=== PATIENT | male | born 1990 | race Caucasian/White ===

== ENCOUNTER 2020-06-27 22:13 | Emergency (ER) | payer SELFPAY ==
[2020-06-27 22:15] VITALS: BP 129/95; PULSE 94; RESP 16; TEMP 36.9; O2SAT 98; BMI 23.6
--- NOTE | 2020-06-27 22:30 | US_ITS ---
WS: [id number] Complete ABDOMINAL ULTRASOUND HISTORY: Abdominal Pain COMPARISON: None available. Liver: 14.2 cm in length. Liver is normal size and echogenicity. No mass or bile duct dilatation. Gallbladder: Normally distended gallbladder. Stones and sludge are present without gallbladder wall t hickening or pericholecystic fluid. Gallbladder wall thickness: 0.3 cm. Pancreas: Normal size and echogenicity. CBD: 0.3 cm. Right kidney: 10.0 cm x 5.1 cm x 4.9 cm. No mass, cortical thickening or hydronephrosis. Left kidney: 10.8 cm x 4.5 cm x 4.1 cm. No mass, cortical thickening or hydronephrosis. Spleen: Normal size and echogenicity. Abdominal aorta and IVC are within normal limits. No ascites. US/US abdomen complete* [id number] IMPRESSION: 1. Cholelithiasis and gallbladder sludge. Otherwise negative gallbladder. 2. No bile duct dilatation.
--- NOTE | 2020-06-27 22:43 | ED_ITS ---
HPI - Abdominal Pain General: Chief Complaint: Abdominal Pain Stated Complaint: ABD PAIN Time Seen by Provider: 06/27/20 22:22 Source: patient Mode of arrival: ambulatory Limitations: no limitations History of Present Illness: HPI narrative: Zay is a 29-year-old male who comes in complaining of epigastric pain. His symptoms began earlier tonight and lasted approximately 45 minutes. He states they started abruptly and ended abruptly. He describes the pain as a dull ache in the epigastric area. He was nauseated but did not vomit. He denies any fevers or chills. He denies any lower abdominal pain. He has had no diarrhea but he has chronic constipation. He denies any urinary symptoms such as urinary frequency/urgency or dysuria. He denies any hematuria or flank pain. Patient states that he had a similar episode that lasted 30 seconds the night before but never sought medical attention. The patient states his pain resolved spontaneously on his way to the hospital and currently he feels fine and has no pain. He is unaware of anything that made his symptoms better or worse other than laying flat helps improve his pain slightly. Associated Symptoms: Reports nausea; Denies chills, coffee ground emesis, constipation, GI cramping, diarrhea, dysuria, fever(s), heartburn, hematochezia, hematuria, hematemesis, melena, syncope and vomiting Review of Systems Const: Denies: fever(s), chills, body aches, fatigue, malaise or diaphoresis Eyes: Denies: change in vision, blurry vision, blind spots, photophobia, eye discharge or eye redness ENMT: Denies: throat pain, odynophagia, hoarseness, swelling of lips/tongue, oral sores, ear or mastoid pain, ear discharge, change in hearing or nasal discharge Card: Denies: chest pain, palpitations, irregular heart rhythm, edema, lightheadedness, syncope, pre-syncope, dyspnea on exertion or orthopnea Resp: Denies: dyspnea, productive cough, non-productive cough, wheezing, hemoptysis or chest congestion GI: Reports: abdominal pain and nausea; Denies: vomiting, hematemesis, coffee ground emesis, heartburn, diarrhea, constipation, GI cramping, hematochezia or melena : Denies: flank pain, dysuria, urinary frequency, urinary urgency or hematuria Musc: Denies: neck pain, back pain, extremity pain, extremity swelling, joint pain, joint swelling, joint redness, joint warmth or joint stiffness Skin/Breast: Denies: rash, pruritus, erythema, skin tenderness or jaundice Neuro: Denies: headache(s), numbness in extremities, weakness in extremities, sensory changes, lack of coordination, difficulty walking, dizziness, vertigo, confusion, Slurred speech present or seizure-like activity Jonh/Lymph: Denies: easy bruising, easy bleeding, petechiae, purpura or enlarged lymph nodes All/Imm: Denies: urticaria, throat swelling, tongue swelling, facial swelling or acute wheezing PFSH ED PFSH: Medical History (Updated 06/28/20 @ 00:17 by Narda Dunn) No pertinent past medical history Surgical History (Updated 06/27/20 @ 22:45 by Narda Dunn) H/O knee surgery History of hip surgery History of mandibular surgery Physical Exam Const: COMMON NORMALS: no acute distress, patient oriented x3, no limitations, healthy appearing and well nourished GENERAL APPEARANCE: cooperative, well kempt and well developed HENMT: COMMON NORMALS: normocephalic, atraumatic, external ears normal, EAC's normal and Normal external nose present HEAD & SCALP: normal to inspection, normocephalic and atraumatic FACE & SINUS: normal facial exam and face symmetric NOSE: Normal external nose present and Normal nares present EXTERNAL EAR: Yes external ears normal EXTERNAL AUDITORY CANAL: EAC's normal MOUTH: Normal oral and palatal mucosa present, lip normal and tongue normal Eye: COMMON NORMALS: Equal, round and reactive pupils present and conjunctivae normal GENERAL EYE: appearance normal, both eyes and all related structures ALIGNMENT: Yes alignment normal PERIORBITAL: periorbital findings normal EYELID: eyelids normal CONJUNCTIVA: Yes conjunctivae normal SCLERA: sclerae normal PUPIL: Yes Equal, round and reactive pupils present Neck/C-Spine: COMMON NORMALS: full ROM, no lymphadenopathy, supple, no meningeal signs and no JVD GENERAL: Yes normal visual inspection and Yes trachea midline Chest: COMMONS NORMALS: normal inspection of the chest and normal palpation of entire chest wall Resp: COMMON NORMALS: normal respiratory effort, No retractions and No use of accessory muscles EFFORT & INSPECTION: Yes able to speak in complete sentences and Yes symmetric chest movement AUSCULTATION: no crackles, no rales, no rhonchi and no wheezes Cardio: COMMON NORMALS: no JVD, regular rate, regular rhythm, S1 normal heart sound present and S2 normal heart sound present RATE: regular rate RHYTHM: regular rhythm HEART SOUNDS: S1 normal heart sound present, S2 normal heart sound present, no click, no gallops, no murmurs, no rubs and abnormal split S2 GI: COMMON NORMALS: Soft to palpation and No hepatosplenomegaly present PALPATION: Yes Soft to palpation, No Tenderness to palpation present (GI), No Guarding due to palpation present (GI), No Rigid due to palpation, Yes No hepatosplenomegaly present, No Hernia present, No Palpable mass present and No Pulsatile mass present : COMMON NORMALS: Yes no CVA tenderness BLADDER/KIDNEY EXAM: Yes no CVA tenderness Back/Pelvis: COMMON NORMALS: no CVA tenderness, thoracic and lumbar spine normal to inspection, no thoracic nor lumbar tenderness and thoraco-lumbar ROM normal Extremity: COMMON NORMALS: normal to inspection, full ROM, capillary refill normal, no joint enlargement, no clubbing, cyanosis or edema and no calf tenderness Neuro: COMMON NORMALS: patient oriented x3, CN's II-XII intact bilaterally, moves all extremities, no focal motor deficits and no sensory deficits noted MENINGEAL SIGNS: Yes no meningeal signs SPEECH: speech normal Psych: COMMON NORMALS: mental status grossly normal, Normal thought process present, cooperative, normal affect, speech normal and activity/motor behavior normal APPEARANCE: Yes well kempt SPEECH: Yes normal speech THOUGHT PROCESS: Normal thought process present Skin: COMMON NORMALS: no rashes or lesions noted, turgor normal, no jaundice, no petechiae and no mottling GENERAL SKIN EXAM: no rashes or lesions noted and turgor normal Procedures EJ/Peripheral Line Arm R: Time Out Performed: Yes Skin Cleansed in Sterile Fashion: Yes Size (gauge): 20 IV Secured and Dressing Applied: Yes Patient Tolerated Procedure: well Additional Comments: Ultrasound utilized throughout procedure. Course Vital Signs: Vital signs: Vital Signs Temperature 98.4 F 06/27/20 22:15 Pulse Rate 94 06/27/20 22:53 Respiratory Rate 18 06/27/20 22:53 Blood Pressure 125/91 06/27/20 22:53 Pulse Oximetry 98 06/27/20 22:53 MDM - Abdominal Pain MDM Narrative: Medical decision making narrative: José is a nice 29-year-old male who comes in complaining of epigastric and right upper quadrant pain. He has had 2 episodes and this episode resolved before he arrived here in the ER. Ultrasound of his gallbladder shows sludge but no wall thickening and no gallstones., Bile duct is normal. Liver enzymes, lipase and all of his labs are unremarkable. The patient wants to go home. He does understand about a dyskinetic gallbladder and will follow-up with Dr. Roman as I have instructed. He agrees to return should his symptoms change or worsen but this time he is feeling better and ready to go home. I see no sign of acute coronary syndrome, appendicitis, bowel obstruction or otherwise. Patient states he is a little constipated and request something for that one time before he goes. I will give him 1 dose of lactulose. Lab Data: Attestation: I reviewed the patient's lab results. Labs: Lab Results 06/27/20 06/27/20 06/27/20 Range/Units 23:27 23:27 23:27 WBC 7.3 (4.0-10.0) 10^3/ uL RBC 4.06 L (4.1-5.3) 10^6/u L Hgb 12.6 (11.7-16.6) g/dL Hct 37.5 L (42.0-52.0) % MCV 92.4 (80-94) fL MCH 31.0 (28.0-34.0) pg MCHC 33.6 (30.0-36.0) g/dL RDW 13.2 (12.1-15.1) % Plt Count 193 (130-400) 10^3/c mm MPV 9.5 (7.4-10.4) fL Neut % (Auto) 83.7 % Lymph % (Auto) 8.1 % [place] % (Auto) 7.0 % Eos % (Auto) 0.4 % Baso % (Auto) 0.3 % Neut # (Auto) 6.09 (1.8-7.7) 10^3/u L Lymph # (Auto) 0.6 L (0.8-4.8) 10^3/u L [place] # (Auto) 0.5 (0.2-0.9) 10^3/u L Eos # (Auto) 0.0 (0.0-0.8) 10^3/u L Baso # (Auto) 0.0 (0.0-0.1) 10^3/u L Nucleated RBC % (a uto) 0 % Nucleated RBCs # 0.0 /100WBC Sodium 136 (136-145) mmol/L Potassium 3.9 (3.5-5.1) mmol/L Chloride 95 L (98-107) mmol/L Carbon Dioxide 31 H (22-29) mmol/L Anion Gap 13.9 (5-19) BUN 9 (6-20) mg/dL Creatinine 0.8 (0.7-1.2) mg/dL GFR Calculation 112.8 (90-130) mL/min Glucose 112 (65-115) mg/dL Calculated Osmolal ity 279 L (285-295) mOsm/k g Calcium 9.6 (8.5-10.5) mg/dL Magnesium 1.8 (1.7-2.3) mg/dL Total Bilirubin 0.6 (0.15-1.2) mg/dL AST 46 H (0-40) U/L ALT 56 H (0-41) U/L Alkaline Phosphata se 323 H (40-130) IU/L Total Protein 8.4 (6.6-8.7) g/dL Albumin 4.3 (3.5-5.2) g/dL Globulin 4.1 (1.3-4.6) g/dL Lipase 24 (13-60) U/L H. pylori IgG Anti body Negative (Negative) Imaging Data ^: US: My impression: Right upper quadrant ultrasound, tech interpretation -gallbladder with sludge present. No gallstones seen. No wall thickening, no pericholecystic fluid. Common bile duct normal. Discharge Plan Discharge Patient Disposition: Home Clinical Impression: Abdominal pain Qualifiers: Abdominal location: right upper quadrant Qualified Code(s): R10.11 - Right upper quadrant pain Condition: Stable Prescriptions: New Protonix 40 mg tablet,delayed release (DR/EC) 40 mg PO DAILY Qty: 30 RF: 0 Zofran 4 mg tablet 4 mg PO Q6H PRN (Reason: nausea and vomiting) Qty: 20 RF: 0 Discharge Orders: Discharge Order (Routine); Ordered 06/28/20 Ordered By: Narda Dunn Referrals: Leon An DO [Primary Care Provider] - 1-3 days Binh Roman MD [Physician] - 1-3 days Patient Instructions: Abdominal Pain (ED) Activity Restrictions/Additional Instructions: Please return to the ER immediately for any of the signs or symptoms listed on your discharge instruction sheets, worsening/changing of your symptoms, you are not getting better as quickly as expected, or for ANY other cause or concerns. If your pain returns or worsens in any way please return to the ER immediately for recheck. Be certain to follow-up with Dr. Roman for further evaluation and care of your gallbladder. Coding Level of Care Code ED Insulating Machine Operator for Chg Fwd Exam Comprehensive
[2020-06-27 22:53] VITALS: BP 125/91; PULSE 94; RESP 18; O2SAT 98
[2020-06-27 23:33] LABS: Basophils % 0.3 %; Eosinophils % 0.4 %; Hematocrit 37.5 % (42.0-52.0); Hemoglobin 12.6 g/dL (11.7-16.6); Lymphocytes # 0.6 10^3/uL (0.8-4.8); Lymphocytes % 8.1 %; Mean Corpuscular HGB Conc 33.6 g/dL (30.0-36.0); Mean Corpuscular Volume 92.4 fL (80-94); Mean Platelet Volume 9.5 fL (7.4-10.4); Monocytes # 0.5 10^3/uL (0.2-0.9); Neutrophils # 6.09 10^3/uL (1.8-7.7); Neutrophils % 83.7 %; Nucleated Red Blood Cells % 0 %; Platelet Count 193 10^3/cmm (130-400); Red Blood Count 4.06 10^6/uL (4.1-5.3); Red Cell Distribution Width 13.2 % (12.1-15.1); White Blood Count 7.3 10^3/uL (4.0-10.0)
[2020-06-27 23:52] LABS: H. Pylori IgG Antibody Negative (Negative)
[2020-06-27 23:56] LABS: Alanine Aminotransferase 56 U/L (0-41); Albumin Level 4.3 g/dL (3.5-5.2); Alkaline Phosphatase 323 IU/L (40-130); Anion Gap 13.9 (5-19); Aspartate Amino Transferase 46 U/L (0-40); Blood Urea Nitrogen 9 mg/dL (6-20); Calcium 9.6 mg/dL (8.5-10.5); Carbon Dioxide 31 mmol/L (22-29); Chloride 95 mmol/L (98-107); Globulin 4.1 g/dL (1.3-4.6); Glomerular Filtration Rate 112.8 mL/min (90-130); Glucose 112 mg/dL (65-115); Lipase 24 U/L (13-60); Magnesium 1.8 mg/dL (1.7-2.3); Osmolality Calculated 279 mOsm/kg (285-295); Potassium 3.9 mmol/L (3.5-5.1); Sodium 136 mmol/L (136-145); Total Bilirubin 0.6 mg/dL (0.15-1.2); Total Protein 8.4 g/dL (6.6-8.7)
[2020-06-28] MEDS: sodium chloride 0.9% 1,000 ML 999 ML IV (00:13)
[2020-06-28] MEDS: sodium chloride 0.9% 1,000 ML 100 ML IV (00:13)
[2020-06-28 00:33] LABS: Urine Appearance Clear (CLEAR); Urine Color Yellow (Yellow); pH Urine 8 (5-7)
[2020-06-28 00:34] LABS: Amorphous Sediment Urine 1+; Bacteria Urine TRACE; Bilirubin Urine Neg (NEGATIVE); Blood Urine Neg (Negative); Glucose Urine UA Norm (Normal); Ketones Urine Negative (Negative); Leukocyte Esterase Urine Negative (Negative); Nitrate Urine Negative (Negative); Protein Urine Neg (Negative); Sulfosalicylic Acid Urine Negative (Negative); Urobilinogen Urine Norm (Negative)
[2020-06-28] MEDS: lactulose oral liq 20 gm/30 mL UDC 30 GM PO (00:45)
== END 2020-06-28 00:49 | disposition home or self-care (01) ==
PROVIDERS: Emergency Provider Emergency Medicine; PCP Family Medicine
DX: R10.11 Right upper quadrant pain (principal)
CPT/HCPCS: 12345; 36000; 36573; 76700; 80053; 81001; 83690; 83735; 85025; 86677; 96360; 96361; 99282; 99283; J7030

== ENCOUNTER 2020-07-25 16:52 | Emergency (ER) | payer SELFPAY ==
[2020-07-25] VITALS (7 sets, daily range): BP systolic 124–131; BP diastolic 80–89; PULSE 76–89; RESP 16–21; TEMP 36.7; O2SAT 94–97; BMI 22.9
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
[2020-07-25 18:25] LABS: Basophils % 0.3 %; Eosinophils # 0.1 10^3/uL (0.0-0.8); Eosinophils % 0.9 %; Hematocrit 39.3 % (42.0-52.0); Hemoglobin 13.3 g/dL (11.7-16.6); Lymphocytes # 0.8 10^3/uL (0.8-4.8); Lymphocytes % 11.9 %; Mean Corpuscular HGB Conc 33.8 g/dL (30.0-36.0); Mean Corpuscular Hemoglobin 30.9 pg (28.0-34.0); Mean Corpuscular Volume 91.4 fL (80-94); Mean Platelet Volume 9.1 fL (7.4-10.4); Monocytes # 0.4 10^3/uL (0.2-0.9); Monocytes % 6.4 %; Neutrophils # 5.26 10^3/uL (1.8-7.7); Neutrophils % 80.2 %; Nucleated Red Blood Cells % 0 %; Platelet Count 287 10^3/cmm (130-400); Red Cell Distribution Width 12.4 % (12.1-15.1); White Blood Count 6.6 10^3/uL (4.0-10.0)
[2020-07-25] MEDS: HYDROmorphone 1 mg/mL INJ 1 mL IVP (18:30)
[2020-07-25 18:35] LABS: Add Urine Microscopic? NO
[2020-07-25 18:40] LABS: Bilirubin Urine Neg (NEGATIVE); Blood Urine Neg (Negative); Glucose Urine UA Norm (Normal); Ketones Urine Negative (Negative); Leukocyte Esterase Urine Negative (Negative); Nitrate Urine Negative (Negative); Protein Urine Neg (Negative); Specific Gravity, Urine 1.015 (1.005-1.030); Urine Appearance Clear (CLEAR); Urine Color Yellow (Yellow); Urobilinogen Urine 1 mg/dL (Negative); pH Urine 6 (5-7)
[2020-07-25 18:44] LABS: Alanine Aminotransferase 20 U/L (0-41); Albumin Level 4.3 g/dL (3.5-5.2); Alkaline Phosphatase 161 IU/L (40-130); Anion Gap 13.1 (5-19); Aspartate Amino Transferase 22 U/L (0-40); Blood Urea Nitrogen 7 mg/dL (6-20); Calcium 9.7 mg/dL (8.5-10.5); Carbon Dioxide 33 mmol/L (22-29); Chloride 95 mmol/L (98-107); Creatinine Clr Calc Pharmacy 121.3833; Globulin 3.9 g/dL (1.3-4.6); Glomerular Filtration Rate 97.8 mL/min (90-130); Glucose 127 mg/dL (65-115); Osmolality Calculated 281 mOsm/kg (285-295); Potassium 4.1 mmol/L (3.5-5.1); Sodium 137 mmol/L (136-145); Total Bilirubin 0.6 mg/dL (0.15-1.2); Total Protein 8.2 g/dL (6.6-8.7)
[2020-07-25] MEDS: iohexol 300 mg/mL 100 mL Btl IV (18:52)
== END 2020-07-25 20:00 | disposition home or self-care (01) ==
PROVIDERS: Family Medicine; Emergency Provider Emergency Medicine; PCP Family Medicine
DX: S16.1XXA Strain of muscle, fascia and tendon at neck level, initial encounter (principal); V89.2XXA Person injured in unspecified motor-vehicle accident, traffic, initial encounter
CPT/HCPCS: 12345; 70450; 71260; 72125; 74177; 80053; 81003; 85025; 96374; 96375; 99283; 99284; J1170; Q9967